=== PATIENT | male | born 1965 | race Caucasian/White ===

== ENCOUNTER 2016-08-21 09:43 | Day surgery (SDC) | payer OTHER ==
[~2016-08-21] VITALS: Ht 172.7 cm; Wt 90.3 kg
[~2016-08-21 09:43] MED LIST: BUPIVACAINE-EPI 0.25%-1:200000 50 ML VIAL. ONE; HYDROmorphone 2 MG/ML VIAL IV PRN; IV RINGERS,LACTATED 1000ML 1,000 ML IV SCH; LIDOCAINE 1% 1 ML SYRINGE. ID PRN; MORPHINE SULFATE 2 MG/ML DISP.SYRIN. IV PRN; ONDANSETRON PF 4 MG/2 ML VIAL. IV PRN; PROCHLORPERAZINE 10 MG/2 ML VIAL. IV PRN; fentaNYL PF VIAL 100 MCG/2 ML VIAL IV PRN
[2016-08-21] MEDS ORDERED: DEXAMETHASONE SOD PHOS 20 MG/5 ML VIAL. ONE (10:17)
[2016-08-21] MEDS ORDERED: LIDOCAINE 2% PF Vial for OR 5 ML VIAL. ONE (10:17)
[2016-08-21] MEDS ORDERED: PROPOFOL 20 ML IV ONE ×2 (10:17→12:17)
[2016-08-21] MEDS ORDERED: MIDAZOLAM HCL/PF 2 MG/2 ML VIAL. ONE (10:17)
[2016-08-21] MEDS ORDERED: fentaNYL PF VIAL 100 MCG/2 ML VIAL ONE ×2 (10:17→11:26)
[2016-08-21] MEDS ORDERED: ROCURONIUM 50 MG/5 ML VIAL. ONE ×2 (10:17→11:56)
[2016-08-21] MEDS ORDERED: ONDANSETRON PF 4 MG/2 ML VIAL. ONE ×2 (10:18→11:57)
[2016-08-21] MEDS ORDERED: ESMOLOL 100 MG/10 ML VIAL. IV ONE (11:32)
[2016-08-21] MEDS ORDERED: GLYCOPYRROLATE 1 MG/5 ML VIAL. ONE (11:57)
[2016-08-21] MEDS ORDERED: NEOSTIGMINE METHYLSULFATE 5 MG/5 ML SYRINGE. ONE (11:57)
[2016-08-21] MEDS ORDERED: SEVOFLURANE 61 TO 120 MINUTES. IH ONE (12:13)
[2016-08-21] MEDS ORDERED: DESFLURANE 16 TO 30 MINUTES. IH ONE (12:13)
[2016-08-21] MEDS ORDERED: MORPHINE SULFATE 10 MG/ML VIAL. ONE (12:25)
[2016-08-21] MEDS ORDERED: KETOROLAC 30 MG/ML INJ FOR OR. INJ ONE (12:25)
--- NOTE | 2016-08-21 12:50 | PDOC1 ---
History and Physical Date of Admission Date of Admission DATE: 08/21/16 TIME: 12:45 Identification/Chief Complaint Chief Complaint left groin bulge Problems: Source Source: Patient History of Present Illness History of Present Illness 50 yo male recently hospitalized with lower gi bleed. Had endoscope showing bleeding internal hemorrhoids. He also had complaints of left groin bulge. GI bleeding resolved. Past Medical History Cardiovascular: No pertinent hx Pulmonary: No pertinent hx GI: No pertinent hx Heme/Onc: No pertinent hx Hepatobiliary: No pertinent hx Psych: No pertinent hx Infectious disease: No pertinent hx Renal/: No pertinent hx Endocrine: No pertinent hx Past Surgical History Past Surgical History: Other (pectusexcuvatuim repair) Family History Family History: Adopted Social History ALCOHOL: social Drugs: None Current Medications Current Medications Current Medications Cefazolin Sodium/ Dextrose 50 ml @ 100 mls/hr 1X PREOP PRN IV PRIOR TO PROCEDURE; Start 08/21/16 at 06:00; Stop 08/21/16 at 18:00 Ondansetron HCl (Zofran) 4 mg PRN Q6HRS PRN IV NAUSEA/VOMITING; Start 08/21/16 at 07:00; Stop 08/22/16 at 06:59 Fentanyl Citrate (Fentanyl 2ml Vial) 25 mcg PRN Q5MIN PRN IV MILD PAIN; Start 08/21/16 at 07:00; Stop 08/22/16 at 06:59 Fentanyl Citrate (Fentanyl 2ml Vial) 50 mcg PRN Q5MIN PRN IV MODERATE PAIN; Start 08/21/16 at 07:00; Stop 08/22/16 at 06:59 Morphine Sulfate 1 mg PRN Q10MIN PRN IV SEVERE PAIN; Start 08/21/16 at 07:00; Stop 08/22/16 at 06:59 Ringer's Solution 1,000 ml @ 30 mls/hr Q24H IV Last administered on 08/21/16t 10:35; Start 08/21/16 at 07:00; Stop 08/21/16 at 18:59 Lidocaine HCl 2 ml PRN 1X PRN ID PRIOR TO IV START; Start 08/21/16 at 07:00; Stop 08/22/16 at 06:59 Hydromorphone HCl (Dilaudid) 0.5 mg PRN Q10MIN PRN IV SEV PAIN, Second choice; Start 08/21/16 at 07:00; Stop 08/22/16 at 06:59 Prochlorperazine Edisylate (Compazine) 5 mg PACU PRN PRN IV NAUSEA, MRX1; Start 08/21/16 at 07:00; Stop 08/22/16 at 06:59 Bupivacaine HCl/ Epinephrine Bitart (Marcaine-Epi 0.25%-1:224135) 50 ml STK-MED ONCE .ROUTE Last administered on 08/21/16t 11:33; Start 08/21/16 at 07:39; Stop 08/21/16 at 07:40; Status DC Dexamethasone Sodium Phosphate (Decadron) 20 mg STK-MED ONCE .ROUTE ; Start 08/21 at 10:17; Stop 08/21/16 at 10:18; Status DC Propofol 20 ml @ As Directed STK-MED ONCE IV ; Start 08/21/16 at 10:17; Stop 08/21 at 10:18; Status DC Lidocaine HCl (Lidocaine Pf 2% Vial) 5 ml STK-MED ONCE .ROUTE ; Start 08/21/16 at 10:17; Stop 08/21/16 at 10:18; Status DC Midazolam HCl (Versed) 2 mg STK-MED ONCE .ROUTE ; Start 08/21/16 at 10:17; Stop 08/21/16 at 10:18; Status DC Fentanyl Citrate (Fentanyl 2ml Vial) 100 mcg STK-MED ONCE .ROUTE ; Start at 10:17; Stop 08/21/16 at 10:18; Status DC Rocuronium [place] (Zemuron) 50 mg STK-MED ONCE .ROUTE ; Start 08/21/16 at 10:17 ; Stop 08/21/16 at 10:18; Status DC Ondansetron HCl (Zofran) 4 mg STK-MED ONCE .ROUTE ; Start 08/21/16 at 10:18; Stop 08/21/16 at 10:19; Status DC Fentanyl Citrate (Fentanyl 2ml Vial) 100 mcg STK-MED ONCE .ROUTE ; Start at 11:26; Stop 08/21/16 at 11:27; Status DC Esmolol HCl (Brevibloc) 100 mg STK-MED ONCE IV ; Start 08/21/16 at 11:32; Stop at 11:33; Status DC Rocuronium [place] (Zemuron) 50 mg STK-MED ONCE .ROUTE ; Start 08/21/16 at 11:56 ; Stop 08/21/16 at 11:57; Status DC Ondansetron HCl (Zofran) 4 mg STK-MED ONCE .ROUTE ; Start 08/21/16 at 11:57; Stop 08/21/16 at 11:58; Status DC Glycopyrrolate (Robinul) 1 mg STK-MED ONCE .ROUTE ; Start 08/21/16 at 11:57; Stop 08/21/16 at 11:58; Status DC Neostigmine Methylsulfate 5 mg STK-MED ONCE .ROUTE ; Start 08/21/16 at 11:57; Stop 08/21/16 at 11:58; Status DC Desflurane (Suprane) 15 ml STK-MED ONCE IH ; Start 08/21/16 at 12:13; Stop at 12:14; Status DC Sevoflurane (Ultane) 60 ml STK-MED ONCE IH ; Start 08/21/16 at 12:13; Stop at 12:14; Status DC Propofol 20 ml @ As Directed STK-MED ONCE IV ; Start 08/21/16 at 12:17; Stop 08/21 at 12:18; Status DC Ketorolac Tromethamine (Toradol For Or Only) 30 mg STK-MED ONCE INJ ; Start 08/21 at 12:25; Stop 08/21/16 at 12:26; Status DC Morphine Sulfate 10 mg STK-MED ONCE .ROUTE ; Start 08/21/16 at 12:25; Stop at 12:26; Status DC Active Scripts Active No Active Prescriptions or Reported Medications Allergies Allergies: Coded Allergies: No Known Drug Allergies (Unverified , 08/21/16) ROS Genitourinary: YES Other (left groin pain) Physical Exam General: Alert, Oriented X3, Cooperative, No acute distress HEENT: Atraumatic, PERRLA, EOMI Lungs: Clear to auscultation, Normal air movement Heart: RRR, no murmurs Abdomen: Normal bowel sounds, Soft, No tenderness Male Genitals Exam: hernia (left not reducible) Extremities: No edema Skin: No significant lesion Neuro: Normal speech Psych/Mental Status: Mental status NL Vitals Vitals Vital Signs Date Time Temp Pulse Resp B/P (MAP) Pulse Ox O2 Delivery O2 Flow Rate FiO2 08/21/16 10:28 98.1 98 20 120/89 98 Room Air 98.1 VTE Prophylaxis Ordered VTE Prophylaxis Devices: Yes VTE Pharmacological Prophylaxi: Contraindicated Assessment/Plan Assessment/Plan LIH and Hemorrhoids Plan robotic assisted L/S LIH repair and hemorrhoidectomy JAVED ZENG MD Aug 21, 2016 12:50
--- NOTE | 2016-08-21 12:52 | PDOC ---
BRIEF OPERATIVE NOTE Date: Aug 21, 2016 Pre-Op Diagnosis LIH and hemorrhoids Post-Op Diagnosis Same Procedure Performed Robotic assisted L/S LIH repair with mesh and rectal exam under anesthia Surgeon Lewis Anesthesia Type: General Blood Loss 10ml Specimens Obtained None Findings small grade II internal hemorrhoids without bleeding Complications None JAVED ZENG MD Aug 21, 2016 12:52
--- NOTE | 2016-08-21 12:54 | DISCH ---
DISCHARGE INSTRUCTIONS Condition on Discharge Condition on Discharge: Stable Activity After Discharge Activity Instructions for Disc: Avoid exertion Other activity instructions: No lifting >20lbs for 2 weeks Diet after Discharge Diet after Discharge: Regular Wound Incision Care Other wound/incision instructi: May shower in 24 hours Contacting the after DC Call your doctor for: If your condition worsens Follow-Up Follow up with: Dr Zeng in 2 weeks JAVED ZENG MD Aug 21, 2016 12:54
[2016-08-21] MEDS ORDERED: oxyCODONE/APAP 5/325 1 TAB TABLET PO PRN ×2 (13:30)
[2016-08-21 13:57] VITALS: BP 128/81
--- NOTE | 2016-08-21 15:13 | OP ---
DATE OF SURGERY: 08/21/2016 PREOPERATIVE DIAGNOSIS: Incarcerated left inguinal hernia, bleeding hemorrhoids. POSTOPERATIVE DIAGNOSES: Incarcerated left inguinal hernia, bleeding hemorrhoids, grade 2. PROCEDURE: Robotic-assisted laparoscopic left inguinal hernia repair with mesh and rectal exam under anesthesia. SURGEON: Paco Zeng M.D. INDICATIONS: The patient is a 50-year-old male who recently had been admitted to the hospital with lower GI bleed, on endoscopy, at that time, was found to have internal hemorrhoids, which were thought to be the source of the bleeding and also was found to have a left inguinal hernia that was incarcerated. Procedure of robotic-assisted laparoscopic left inguinal hernia repair was explained to the patient in detail. Risks, benefits were also discussed including bleeding, infection and injury to intra-abdominal contents, possibly sustaining further open operations, also discussed possible hemorrhoidectomy with bleeding and infection. He seemed to understand and gave verbal and written consent to have the procedure performed. DESCRIPTION OF PROCEDURE: The patient was taken to the operating room and placed in the supine position, general anesthesia was initiated. Once the patient was asleep and intubated, he was placed in low lithotomy positioning, his abdomen was prepped and draped in sterile fashion using ChloraPrep. Rectal and perineum prep was done with Betadine scrub and solution. An area just above the umbilicus, injected 0.25% Marcaine with epinephrine. Incision was made with an 11 blade scalpel and a Veress needle was placed within the abdomen. Pneumoperitoneum was achieved. Once this was complete, an 8.5 mm da Karen port was placed and a camera was placed within the abdomen. Abdomen was inspected. No other abnormalities were noted. Was noted a fairly large left inguinal hernia with incarcerated sigmoid colon. Two more da Karen ports were placed under direct visualization, one in the left mid abdomen and one in the right mid abdomen. At this point, the da Karen robot was brought in, docked to all the port sites and a 30-degree up scope was placed within the abdomen. grasper and EndoShears scissors were also placed at this point. The surgeon went to the robotic console. Using the grasper and EndoShears scissors, the sigmoid colon was reduced from the hernia. The peritoneum was then incised and a flap was propagated medially to laterally reducing the hernia sac from the hernia defect. Once this was completed, an ProGrip mesh was then placed over the hernia defect. This was full could over the hernia defect superior and inferiorly. Once this has been appropriately placed, the peritoneum was then closed with a running V-Loc suture. At this point, the da Karen robot was undocked and the pneumoperitoneum was reduced. All ports were removed. The skin incisions were all closed with 4-0 subcuticular Monocryl. The patient was placed in Trendelenburg, rectal exam was done with speculum, while he did have some internal hemorrhoids, they were only grade 2. There was no evidence of bleeding. These have significantly improved from his hospitalization. It was felt at this point, hemorrhoidectomy was unnecessary and the speculum was removed. The patient was awakened, extubated in the operating room, taken to recovery in stable condition. All sponge and instrument counts listed as correct. Estimated blood loss 10 mL. PACO ZENG MD DR: ADRIEL/giuseppe JOB#: [id number] / [id number]
== END 2016-08-21 14:38 | disposition home or self-care (01) ==
LOC: SURG 09:43
PROVIDERS: ATTEND Surgery
DX: K40.30 Unilateral inguinal hernia, with obstruction, without gangrene, not specified as recurrent (principal); K64.1 Second degree hemorrhoids; E78.00 Pure hypercholesterolemia, unspecified; Z72.89 Other problems related to lifestyle; Z72.0 Tobacco use; Z87.39 Personal history of other diseases of the musculoskeletal system and connective tissue
CPT/HCPCS: 49650; A4215; C1781; J0690; J1100; J1885; J2250; J2270; J2405; J2704; J2710; J3010; J3490; J7120

== ENCOUNTER → 2019-07-30 | Outpatient (CLI) | payer OTHER ==
--- NOTE | 2019-07-30 11:42 | RAD ---
Ultrasound of the left groin 07/30/2019 CLINICAL HISTORY: Left groin lump. TECHNIQUE: A Real-time ultrasound examination of the left inguinal region in the area of the patient's palpable abnormality was performed. Multiple images were obtained. FINDINGS: Within the left inguinal region a oval-shaped hypoechoic mass is seen which measures 1.3 cm greatest diameter. This is 1 cm deep to the skin surface. No internal vascularity is seen. Its ultrasound appearance is nonspecific. It could represent an area of scarring, a reactive inguinal lymph node or possibly a hematoma. No hernia is noted. IMPRESSION: 1.3 cm hypoechoic mass is seen within the left inguinal region which has a nonspecific ultrasound appearance as discussed above. No hernia is seen. Electronically signed by: Cholo Feliciano MD (07/30/2019 11:39 AM) [id number]
== END ==
LOC: US 09:44
PROVIDERS: ATTEND Surgery
DX: K40.91 Unilateral inguinal hernia, without obstruction or gangrene, recurrent (principal)
CPT/HCPCS: 76882